=== PATIENT | male | born 1960 | race American Indian/Alaskan Native ===

== ENCOUNTER 2017-04-07 19:08 | Emergency (ER) | payer MEDICAID ==
[2017-04-07 19:09] VITALS: BMI 40.2
[2017-04-07 19:17] VITALS: BP 132/79; PULSE 79; RESP 16; TEMP 98.2; O2SAT 100
--- NOTE | 2017-04-07 20:06 | ED PDOC ---
HPI: General Adult Time Seen by Provider: 04/07/17 19:20 Chief Complaint (Nursing): Allergic Reaction Chief Complaint (Provider): chest pain History Per: Patient History/Exam Limitations: no limitations Onset/Duration Of Symptoms: Days (x2) Current Symptoms Are (Timing): Still Present Additional Complaint(s): Justice Topete is a 57 year old male with previous medical history of stroke, Crump's Palsy, hypertension and diabetes, who presents to the emergency department with a complaint of chest pain that has since resolved status post taking sublingual nitroglycerin 2 days ago. Denied any further medical complaints. Patient was recently diagnosed with Crump's Palsy for facial droop at [facility] 3 days ago and have been taking prescribed Prednisone with no relief of symptoms. Of note, patient also asked provider if he could stay in ED for an unspecific amount of time. PMD: none provided Past Medical History Reviewed: Historical Data, Nursing Documentation, Vital Signs Vital Signs: Last Vital Signs Temp 98.2 F 04/07/17 19:12 Pulse 79 04/07/17 19:12 Resp 16 04/07/17 19:12 BP 132/79 04/07/17 19:12 Pulse Ox 100 04/07/17 21:25 - Medical History PMH: CVA, Diabetes, HTN, TIA Denies: HIV, Chronic Kidney Disease Other PMH: Crump's Palsy - Family History Family History: States: Unknown Family Hx - Social History Current smoker - smoking cessation education provided: No Ex-Smoker (has not smoked in the last 12 months): No Alcohol: None Drugs: Denies - Immunization History Hx Tetanus Toxoid Vaccination: No Hx Influenza Vaccination: Yes Hx Pneumococcal Vaccination: Yes - Home Medications Home Medications: Ambulatory Orders Medication Instructions Recorded Atorvastatin [Lipitor] 80 mg PO HS 11/03/16 Clopidogrel [Plavix] 75 mg PO DAILY 11/03/16 Losartan [Cozaar] 50 mg PO DAILY 11/03/16 Metformin HCl [Fortamet] 500 mg PO DAILY 11/03/16 Metoprolol Tartrate 50 mg PO BID 11/03/16 Acetaminophen [Tylenol 325mg tab] 650 mg PO Q6H PRN #0 tab 11/07/16 Enoxaparin [Lovenox] 40 mg SC DAILY syr 11/07/16 Piperacill/Tazo 3.375gm in Dex 3.375 gm IVPB Q6 10 Days bag 11/07/16 [Zosyn 3.375 Gm IV] Saccharomyces Boulardi [Florastor] 250 mg PO BID cap 11/07/16 Vancomycin/0.9 % Sod Chloride 1.25 gm IV Q12 10 Days plast..bag 11/07/16 [Vanco-0.9% NaCl 1.25 G/250 ml] oxyCODONE/Acetaminophen [Percocet 1 tab PO Q6 PRN #0 tab 11/07/16 5/325 mg Tab] Famotidine [Pepcid] 20 mg PO HS #30 tab 04/04/17 Prednisone [Deltasone] 20 mg PO DAILY #23 tablet 04/04/17 - Allergies Allergies/Adverse Reactions: Allergies Allergy/AdvReac Type Severity Reaction Status Date / Time No Known Allergies Allergy Verified 11/02/16 18:55 Review of Systems ROS Statement: Except As Marked, All Systems Reviewed And Found Negative Cardiovascular: Positive for: Chest Pain (already resolved upon arrival to ED) Physical Exam - Reviewed Nursing Documentation Reviewed: Yes Vital Signs Reviewed: Yes - Physical Exam Appears: Positive for: Well, Non-toxic, No Acute Distress Head Exam: Positive for: ATRAUMATIC, NORMAL INSPECTION, NORMOCEPHALIC Skin: Positive for: Normal Color Eye Exam: Positive for: Normal appearance, EOMI, PERRL. Negative for: Nystagmus ENT: Positive for: Normal ENT Inspection Neck: Positive for: Normal, Painless ROM Cardiovascular/Chest: Positive for: Regular Rate, Rhythm. Negative for: Chest Non Tender Respiratory: Positive for: Normal Breath Sounds. Negative for: Decreased Breath Sounds, Crackles, Rales, Rhonchi, Wheezing, Respiratory Distress Gastrointestinal/Abdominal: Positive for: Normal Exam, Bowel Sounds, Soft. Negative for: Tenderness Extremity: Positive for: Normal ROM. Negative for: Tenderness, Pedal Edema, Calf Tenderness, Deformity Neurologic/Psych: Positive for: Alert, Oriented, Facial Droop (right-sided). Negative for: Motor/Sensory Deficits - Laboratory Results Result Diagrams: 04/07/17 19:56 04/07/17 19:56 - ECG O2 Sat by Pulse Oximetry: 100 (RA) Pulse Ox Interpretation: Normal Medical Decision Making Medical Decision Making: Initial Impression: Possible bed-seeking behavior S/P recent diagnosis of Crump' s Palsy; homelessness; Crump's Palsy Initial Plan: * EKG * CMP * Troponin I * CBC * Accucheck Time: 2099 --Labs: no abnormalities noted. Time: 2119 --Upon provider reevaluation, patient is medically stable and requires no further treatment in the ED at this time. Patient will be discharged home. Counseling was provided and all questions were answered regarding diagnosis and need for follow up with PCP, Dr. Cleveland Riley, in 5 days and to continue with current medications. There is agreement to discharge plan. Return if symptoms persist or worsen. Clinical Impression: Crump's Palsy Scribe Attestation: Documented by Elizabeth Dickens, acting as a scribe for Raffi Arceo MD. Provider Scribe Attestation: All medical record entries made by the Scribe were at my direction and personally dictated by me. I have reviewed the chart and agree that the record accurately reflects my personal performance of the history, physical exam, medical decision making, and the department course for this patient. I have also personally directed, reviewed, and agree with the discharge instructions and disposition. Disposition - Clinical Impression Clinical Impression: Crump palsy - Patient ED Disposition Is Patient to be Admitted: No Counseled Patient/Family Regarding: Studies Performed, Diagnosis, Need For Followup - Disposition Disposition: Routine/Home Disposition Time: 21:20 Condition: STABLE Instructions: Crump Palsy (ED) Forms: [employer] (Russian)
[2017-04-07 20:11] LABS: BASO # 0.1 K/uL (0.0-0.2); BASO % 0.6 % (0.0-2.0); EOS % 0.1 % (0.0-4.0); HEMATOCRIT 40.7 % (35.0-51.0); LYMPH # 1.5 K/uL (1.0-4.3); MEAN CELL VOLUME 89.7 fl (80.0-94.0); MEAN CORPUSCULAR HEMOGLOBIN 28.8 pg (27.0-31.0); MEAN CORPUSCULAR HGB CONC 32.1 g/dL (33.0-37.0); MEAN PLATELET VOLUME 7.6 fl (7.2-11.7); MONO # 0.5 K/uL (0.0-0.8); MONO % 6.4 % (0.0-10.0); NEUT # 6.2 K/uL (1.8-7.0); NEUT % 74.9 % (50.0-75.0); NRBC % 0.1 % (0.0-0.0); RED CELL DISTRIBUTION WIDTH 15.1 % (11.5-14.5); WHITE BLOOD COUNT 8.2 K/uL (4.8-10.8)
[2017-04-07 20:26] LABS: ALB/GLOB RATIO 1.4 (1.0-2.1); ALKALINE PHOSPHATASE 103 U/L (38-126); ALT/SGPT 26 U/L (21-72); AST/SGOT 25 U/L (17-59); BILIRUBIN,TOTAL 0.5 mg/dl (0.2-1.3); BLOOD UREA NITROGEN 25 mg/dl (9-20); CALCIUM 9.4 mg/dL (8.4-10.2); CARBON DIOXIDE 24 mmol/L (22-30); CHLORIDE 104 mmol/L (98-107); GFR AFRICAN-AMERICAN > 60; GLUCOSE,RANDOM 105 mg/dL (75-110); POTASSIUM 3.9 MMOL/L (3.6-5.0); SODIUM 142 mmol/l (132-148); TOTAL PROTEIN 7.8 G/DL (6.3-8.2)
--- NOTE | 2017-04-08 12:15 | CARD ---
APPROVED REPORT EKG Measurement Heart [id number] <Conclusion> Normal sinus rhythm Incomplete left bundle branch block Borderline ECG
== END 2017-04-07 21:40 | disposition home or self-care (01) ==
LOC: H.ER 19:08
DX: G51.0 Bell's palsy (principal); E11.9 Type 2 diabetes mellitus without complications; I10 Essential (primary) hypertension; Z59.0 Homelessness; Z86.73 Personal history of transient ischemic attack (TIA), and cerebral infarction without residual deficits; Z87.891 Personal history of nicotine dependence